=== PATIENT | female | born 1990 | race Caucasian/White ===

== ENCOUNTER 2025-03-08 19:03 | Emergency (ER) | payer OTHER, SELFPAY ==
--- NOTE | ~2025-03-08 | CT_ITS ---
CLINICAL HISTORY: headache dizziness CT head without contrast Comparison: None Findings: No intracranial mass, midline shift, hydrocephalus, or acute hemorrhage. No acute process in sinuses or mastoids. No acute bony abnormality. Impression: No acute intracranial process This document has been electronically signed by: Moshe Aguilar MD on 03/08/2025 20:07:45
[2025-03-08 19:23] VITALS: BP 147/75; PULSE 68; RESP 18; TEMP 36.6; O2SAT 99; BMI 34.9
--- NOTE | 2025-03-08 19:25 | ED_ITS ---
HPI - General Adult General Chief complaint: Abdominal Pain Stated complaint: Miegraine, Dizzy, lower back and abd pain Time Seen by Provider: 03/08/25 22:26 Source: patient, RN notes reviewed and old records reviewed Mode of arrival: ambulatory Limitations: no limitations History of Present Illness ED Provider: Weston AHUJA narrative: 34-year-old female who denies any past medical history presents for evaluation of multiple complaints including abdominal pain, headache. Patient reports a global headache for the last 3 days. The headache waxes and wanes in intensity. She also complains of lower abdominal pain that is bilateral. Denies any vaginal bleeding or discharge. She reports that her menstrual cycle started yesterday. She reports that she has low back pain bilaterally She reports that she stopped her oral contraception in December, 2 months ago Denies any fevers or chills. She called her doctor and was referred to the ER She was status post cholecystectomy Related Data Previous Rx's ?Medication ?Instructions ?Recorded erikyyowqs-wfkvagpvovtqv-movbgcqp 1 cap PO Q4-6H PRN pain #12 caps 03/08/25 50 mg-300 mg-40 mg capsule (Fioricet) Allergies Allergy/AdvReac Type Severity Reaction Status Date / Time No Known Allergies Allergy Verified 03/08/25 19:24 Review of Systems 2 Constitutional: Constitutional: Denies body ache(s), Denies chills, Denies fever(s), Denies frequent falls and Reports headache(s) Eyes: Eyes: Denies blind spots and Denies blurry vision ENT: Denies vertigo, Denies dizziness and Reports headache(s) Cardiovascular: Cardiovascular: Denies chest pain and Denies dyspnea Respiratory: Respiratory: Denies cough and Denies dyspnea Gastrointestinal: Gastrointestinal: Reports abdominal pain, Denies GI cramping, Denies diarrhea, Denies loose stools, Reports nausea and Denies vomiting Genitourinary: Genitourinary: Denies dyspareunia, Denies dysuria, Reports pelvic pain and Denies vaginal discharge Musculoskeletal: Musculoskeletal: Reports back pain Integumentary/Breasts: Skin/Breast: Denies rash Neurologic: Denies vertigo, Denies dizziness, Denies frequent falls and Reports headache(s) Psychiatric: Psychiatric: Denies anxiety PMFSH Social History Social History Advance Directives: No Advance Directives Information Provided: No Physical Exam ED Vital Signs: Vital Signs - 24 hr 03/08/25 19:23 03/08/25 22:14 03/08/25 22:44 Temperature 97.9 F 98.4 F 98.4 F Pulse Rate 68 65 65 Respiratory Rate 18 18 18 Blood Pressure 147/75 H 127/57 L 127/57 L Pulse Oximetry 99 98 98 Oxygen Delivery Method Room Air Room Air Room Air BMI result Body Mass Index 34.9 Const General: healthy appearing, comfortable, no acute distress, alert and awake Nutritional Appearance: well nourished Orientation/consciousness: patient oriented x3 HENMT Head: Yes normocephalic and Yes atraumatic Eyes Eyelids: Yes eyelids normal Conjunctivae: conjunctivae normal Sclerae: sclerae normal Corneas: corneas normal Pupils: Equal, round and reactive pupils present EOM: EOMs intact bilaterally Neck Neck: Yes full ROM Resp Effort & Inspection: normal respiratory effort, able to speak in complete sentences and not labored Cardio Rate: regular rate Rhythm: regular rhythm GI Inspection: No distended Palpation (GI): Soft to palpation, not firm, nontender, no guarding and not rigid Skin General skin exam: no rashes or lesions noted and elasticity normal Neuro General: patient oriented x3 Cranial nerves: Yes CN's II-XII intact bilaterally, Yes Equal, round and reactive pupils present and Yes Bilaterally intact EOM present Cognition (Neuro): normal cognition Extrem Other: Moving all extremities well without any obvious deformities Course Course Course Narrative: This is a Rapid Medical Examination (RME) performed by Yadi Boyer PA-C in triage. Full HPI, ROS, assessment and treatment plan per primary provider in the Main ED. 03/08/251924 ULISES [place] Hx: 34 yo female here for eval of multiple complaints. Reports headache with associated dizziness x3 days. Taking Tylenol at home without relief. Admits to lower abdominal pain radiating to her lower back, nausea without vomiting. Took home test which was negative. PE/vitals: hypertensive, vitals otherwise wnl Plan: labs, ekg, ua, ct Medications Administered Discontinued Medications Generic Name Dose Route Start Last Admin Trade Name Freq PRN Reason Stop Dose Admin Acetaminophen/Butalbital/Caffeine 1 tab 03/08/25 22:37 03/08/25 22:44 Butalb/Acetamin/Caff 50/325/40 Tablet PO 03/08/25 22:38 Not Given ONCE ONE Medical Decision Making Medical Decision Making [facility] Narrative: 34-year-old female presents for evaluation of multiple complaints including headache, abdominal pain, nausea without vomiting and back pain. Her physical exam is reassuring, her abdomen is nondistended, soft and nontender. I have a low suspicion for acute appendicitis, she was already status post cholecystectomy. She may have some pelvic cramping related to discontinuing her oral contraception. She was no abnormal vaginal bleeding or discharge, denies any concern for sexually transmitted infections. Patient defers pelvic examination at this time. She appears quite well overall. Has a reassuring exam, labs are reassuring. She had a CT scan in triage of the brain that does not show any acute abnormalities. Do not believe there is any indication for emergent imaging of the abdomen/pelvis at this time. The patient will be discharged to follow up with the PCP, we will treat her headache with Fioricet Differential Diagnosis Differential Diagnoses: The differential diagnosis associated with the presentation includes Constipation Abdominal pain Pelvic cramping Ovarian cyst Uterine fibroid UTI Acute headache Cluster headache Migraine headache Tension headache Lab Data [facility] Lab Attestation statement: I reviewed the patient's lab results. No leukocytosis or anemia. Normal platelet count. No electrolyte abnormalities 03/08/25 19:49 03/08/25 19:49 Labs: Lab Results 03/08/25 Range/Units 19:49 WBC 9.2 (4.8-10.8) X10*3/uL RBC 4.21 (4.20-5.50) X10*6/uL Hgb 13.2 (12.0-16.0) g/dl Hct 39.8 (37.0-47.0) % MCV 94.5 (80.0-98.0) fL MCH 31.4 (27.0-33.0) pg MCHC 33.2 (31.0-35.0) g/dl RDW 11.5 (11.0-16.0) % Plt Count 314 (160-400) X10*3/uL MPV 10.6 (9.4-12.3) fL Immature Gran % (Auto) 0.2 (0.0-0.4) % Neut % (Auto) 75.4 H (45-73) % Lymph % (Auto) 17.2 L (20-40) % Norman % (Auto) 5.2 (2-11) % Eos % (Auto) 1.3 (0-4) % Baso % (Auto) 0.7 (0-2) % Lymph # (Auto) 1.6 (1.2-4.9) X10*3/uL Norman # (Auto) 0.5 (0.1-1.2) X10*3/uL Eos # (Auto) 0.1 (0.0-0.4) X10*3/uL Baso # (Auto) 0.1 (0.0-0.2) X10*3/uL Abs Immat Gran (auto) 0.02 (0.00-0.03) X10*3/uL Absolute Neuts (auto) 6.9 (2.0-8.3) x10*3/uL Absolute Nucleated RBC 0.000 (0.0-0.012) X10*3/uL Nucleated RBC % (auto) 0.0 (0.0-0.2) /100WBC Sodium 139 (135-145) mmol/L Potassium 3.9 (3.3-5.1) mmol/L Chloride 107 (96-108) mmol/L Carbon Dioxide 26 (22-29) mmol/L Anion Gap 10 L (12-20) BUN 11 (9-16) mg/dL Creatinine 0.76 (0.5-1.4) mg/dL Estim Creat Clear Calc 93.4 Estimated GFR > 60 Random Glucose 93 (60-115) mg/dL Calcium 8.9 (8.4-10.2) mg/dL Magnesium 1.8 (1.6-2.6) mg/dL Total Bilirubin 0.2 (0.0-1.0) mg/dL AST 16 (5-31) U/L ALT 12 (0-31) U/L Alkaline Phosphatase 78 (39-117) U/L Total Protein 7.1 (6.5-8.0) g/dL Albumin 3.8 (3.5-5.0) g/dL Lipase 24 (8-78) U/L Urine Color Yellow Urine Appearance Turbid Urine pH 8.5 (5.0-9.0) Ur Specific [place] 1.020 (1.005-1.025) Urine Protein Negative (Neg-Trace) mg/dL Urine Glucose (UA) Negative (Negative) mg/dL Urine Ketones Negative (Negative) mg/dL Urine Blood Negative (Negative) Urine Nitrite Negative (Negative) Ur Leukocyte Esterase Negative (Negative) Urine Test NEGATIVE (NEGATIVE) Radiology Impression Discussion of test interpretation with radiology: I have reviewed the radiologist's reading. Radiologist Impression: Findings: No intracranial mass, midline shift, hydrocephalus, or acute hemorrhage. No acute process in sinuses or mastoids. No acute bony abnormality. Impression: No acute intracranial process This document has been electronically signed by: Moshe Aguilar MD on 03/08/2025 20:07:45 Discharge Plan Discharge Clinical Impression: Headache Patient Disposition: Home, Self-Care Instructions: Acute Headache (ED) Additional Instructions: Your workup in the ER today was reassuring This includes your blood work, CT scan of the brain, injure urinalysis Take Fioricet as needed for headaches Follow-up with your primary doctor, return for new or worsening symptoms If your abdominal pain persists, you may see GI as an outpatient Return for new or worsening symptoms Prescriptions: New [id number] [Fioricet] 50-300-40 mg capsule 1 cap PO Q4-6H PRN (Reason: pain) Qty: 12 0RF Referrals: Leno Camara MD [Physician] - (abdominal pain) Interventions: ED Discharge Assessment Last Done: 03/08/25 22:44 Discharge Date/Time: 03/08/25 22:47 Print Language: Italian
--- NOTE | 2025-03-08 19:26 | ECG_ITS ---
Test Reason : DIZZINESS Blood Pressure : */* mmHG Vent. Rate : 61 BPM Atrial Rate : 61 BPM P-R Int : 150 ms QRS Dur : 74 ms QT Int : 386 ms P-R-T Axes : 48 21 22 degrees QTcB Int : 388 ms Normal sinus rhythm Normal ECG No previous ECGs available Referred By: Sheeren Boyer Electronically Signed By: ADAM ORO MD
[2025-03-08 19:54] LABS: MANUAL DIFF FLAG NO
[2025-03-08 19:56] LABS: Basophils Absolute Auto 0.1 X10*3/uL (0.0-0.2); Basophils Percent Auto 0.7 % (0-2); Eosinophils Absolute Auto 0.1 X10*3/uL (0.0-0.4); Eosinophils Percent Auto 1.3 % (0-4); Hematocrit 39.8 % (37.0-47.0); Hemoglobin 13.2 g/dl (12.0-16.0); Imm Gran Abs Auto 0.02 X10*3/uL (0.00-0.03); Imm Gran Pct Auto 0.2 % (0.0-0.4); Lymphocytes Absolute Auto 1.6 X10*3/uL (1.2-4.9); Lymphocytes Percent Auto 17.2 % (20-40); Mean Corpuscular HGB Conc 33.2 g/dl (31.0-35.0); Mean Corpuscular Hemoglobin 31.4 pg (27.0-33.0); Mean Corpuscular Volume 94.5 fL (80.0-98.0); Mean Platelet Volume 10.6 fL (9.4-12.3); Monocytes Absolute Auto 0.5 X10*3/uL (0.1-1.2); Monocytes Percent Auto 5.2 % (2-11); Neutrophils Absolute Auto 6.9 x10*3/uL (2.0-8.3); Neutrophils Percent Auto 75.4 % (45-73); Platelet Count 314 X10*3/uL (160-400); Red Blood Count 4.21 X10*6/uL (4.20-5.50); Red Cell Distribution Width 11.5 % (11.0-16.0); White Blood Count 9.2 X10*3/uL (4.8-10.8)
[2025-03-08 19:58] LABS: Appearance Urine Turbid; Color Urine Yellow; Glucose Urine UA Negative (Negative); Leukocyte Esterase Urine Negative (Negative); Nitrite Urine Negative (Negative); PH 8.5 (5.0-9.0); Urine Blood Negative (Negative); Urine Ketones Negative (Negative); Urine Protein Negative (Neg-Trace)
[2025-03-08 20:01] LABS: UPreg QC Valid YES; Urine Pregnancy NEGATIVE (NEGATIVE)
[2025-03-08 20:22] LABS: Alanine Aminotransferase 12 U/L (0-31); Albumin Level 3.8 g/dL (3.5-5.0); Anion Gap 10 (12-20); Aspartate Amino Transferase 16 U/L (5-31); Bilirubin Total 0.2 mg/dL (0.0-1.0); Blood Urea Nitrogen 11 mg/dL (9-16); Calcium 8.9 mg/dL (8.4-10.2); Carbon Dioxide 26 mmol/L (22-29); Chloride 107 mmol/L (96-108); Creatinine Clr Calc Pharmacy 93.4; Estimated Glomerular Filt Rate > 60; Glucose Random 93 mg/dL (60-115); Lipase 24 U/L (8-78); Magnesium 1.8 mg/dL (1.6-2.6); Potassium 3.9 mmol/L (3.3-5.1); Sodium 139 mmol/L (135-145); Total Protein 7.1 g/dL (6.5-8.0)
[2025-03-08 20:31] LABS: Alkaline Phosphatase 78 U/L (39-117)
[2025-03-08 22:14] VITALS: BP 127/57; PULSE 65; RESP 18; TEMP 36.9; O2SAT 98
[2025-03-08 22:44] VITALS: BP 127/57; PULSE 65; RESP 18; TEMP 36.9; O2SAT 98
== END 2025-03-08 22:47 | disposition home or self-care (01) ==
PROVIDERS: Physician Assistant Medical; Emergency Provider Emergency Medicine
DX: G43.909 Migraine, unspecified, not intractable, without status migrainosus (principal); R42 Dizziness and giddiness; M54.50 Low back pain, unspecified; R10.2 Pelvic and perineal pain; Z79.899 Other long term (current) drug therapy
CPT/HCPCS: 36415; 70450; 80053; 81003; 81025; 83690; 83735; 85025; 93005; 99284

== ENCOUNTER → 2025-03-08 19:25 | Outpatient (BNV) | payer OTHER, SELFPAY | PROVIDERS: Visit Provider Radiology Diagnostic Radiology | DX: R51.9 Headache, unspecified (principal); R42 Dizziness and giddiness | CPT/HCPCS: 70450 ==

== ENCOUNTER → 2025-03-08 19:26 | Outpatient (BNV) | payer OTHER, SELFPAY | PROVIDERS: Emergency Provider Emergency Medicine; Visit Provider Internal Medicine Cardiovascular Disease | DX: R42 Dizziness and giddiness (principal) | CPT/HCPCS: 93010 ==